=== PATIENT | male | born 1945 | race Caucasian/White ===

== ENCOUNTER 2017-08-03 12:40 | Emergency (ER) | payer OTHER ==
[~2017-08-03] VITALS: Ht 180.3 cm; Wt 83.9 kg
--- NOTE | ~2017-08-03 | EKG ---
[address] [place] [address] ELECTROCARDIOGRAM REPORT Name: YANELY FITZGERALD Room #: DEP AYLA Ramos#: [id number] Admission: 08/03/17 Attend Phys: Discharge: 08/03/17 Date of : 45 Report #: [id number] THIS REPORT FOR: //name// [facility] ED Test Date: 2017-08-03 Test Time: 14:06:30 Pat Name: YANELY FITZGERALD Department: Room: Gender: M Technical Services Assistant: [id number] : 1945 Requested By: Efrain Todd Order Number: [id number] MD: Je Elaine Measurements Intervals [place] Rate: 73 P: 24 AR: 182 QRS: -20 QRSD: 102 T: 14 QT: 392 QTc: 432 Interpretive Statements Sinus rhythm Borderline left axis deviation Baseline wander in lead(s) I No previous ECG available for comparison Electronically Signed On 08-04-2017 8:57:13 CDT by Je Elaine [email or web address] <ELECTRONICALLY SIGNED> By: Je Elaine MD, [facility] 08/04/17 [id number] Je Elaine MD, FACC /EPI
[2017-08-03] MEDS ORDERED: OMEPRAZOLE 20 M20 M1 PO (14:00)
[2017-08-03] MEDS ORDERED: PRINIVIL20 M1 PO (14:00)
[2017-08-03 14:24] VITALS: BP 164/86
== END 2017-08-03 14:25 | disposition home or self-care (01) ==
LOC: ER 12:40
DX: I10 Essential (primary) hypertension (principal); K21.9 Gastro-esophageal reflux disease without esophagitis